=== PATIENT | female | born 1980 | race Two or more races ===

== ENCOUNTER 2016-12-04 13:08 | Emergency (ER) | payer MEDICAID ==
[~2016-12-04] VITALS: Ht 167.6 cm; Wt 68.0 kg
[2016-12-04 13:13] VITALS: BP 125/82
== END 2016-12-04 13:33 | disposition left against medical advice (07) ==
LOC: EDBD 13:08 → ER 13:09
DX: O46.91 Antepartum hemorrhage, unspecified, first trimester (principal); R10.9 Unspecified abdominal pain; Z3A.11 11 weeks gestation of pregnancy; Z53.21 Procedure and treatment not carried out due to patient leaving prior to being seen by health care provider

== ENCOUNTER 2016-12-31 12:54 | Emergency (ER) | payer MEDICAID ==
[~2016-12-31] VITALS: Ht 162.6 cm; Wt 83.0 kg
[2016-12-31 12:57] VITALS: BP 132/79
[2016-12-31 13:51] LABS: Urine Bilirubin Negative (Negative); Urine Color Yellow (Yellow); Urine Glucose Normal (Normal); Urine Nitrite Negative (Negative); Urine RBC <1 /hpf (0 - 4); Urine Squamous Epithelial Cell FEW /hpf (<5); Urine Urobilinogen Normal (Negative)
[2016-12-31 14:09] LABS: Urine Blood 1+ /uL (Negative); Urine Ketone 2+ (Negative)
== END 2016-12-31 16:10 | disposition left against medical advice (07) ==
LOC: ER 12:54
DX: O20.8 Other hemorrhage in early pregnancy (principal); Z3A.00 Weeks of gestation of pregnancy not specified; Z53.21 Procedure and treatment not carried out due to patient leaving prior to being seen by health care provider
CPT/HCPCS: 81001

== ENCOUNTER 2025-03-29 08:38 | Emergency (ER) | payer MEDICAID ==
[~2025-03-29] VITALS: Ht 154.9 cm; Wt 78.1 kg
[~2025-03-29 08:38] MED LIST: PREN-96 PO
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
[2025-03-29 09:43] VITALS: BP 132/68; PULSE 69; RESP 15; TEMP 99; O2SAT 99
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
[2025-03-29] MEDS ORDERED: METH-1182 PO (09:44)
[2025-03-29] MEDS ORDERED: IBUP-1456 PO (09:44)
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
== END 2025-03-29 09:47 | disposition home or self-care (01) ==
LOC: ER 08:38
DX: S16.1XXA Strain of muscle, fascia and tendon at neck level, initial encounter (principal); S39.012A Strain of muscle, fascia and tendon of lower back, initial encounter; Z88.0 Allergy status to penicillin; Z79.1 Long term (current) use of non-steroidal anti-inflammatories (NSAID); Z79.899 Other long term (current) drug therapy; V89.2XXA Person injured in unspecified motor-vehicle accident, traffic, initial encounter; Y93.89 Activity, other specified; Y92.488 Other paved roadways as the place of occurrence of the external cause; Y99.8 Other external cause status
CPT/HCPCS: 72040; 72100